=== PATIENT | male | born 1960 | race Caucasian/White ===

== ENCOUNTER → 2017-10-15 | Outpatient (CLI) | payer OTHER | LOC: COL.LAB 14:53 | DX: Z01.812 Encounter for preprocedural laboratory examination (principal) ==

== ENCOUNTER 2017-11-22 13:15 | Inpatient (IN) | payer OTHER ==
[~2017-11-22] VITALS: Ht 182.9 cm; Wt 146.7 kg
[2017-11-22] VITALS (10 sets, daily range): BP systolic 117–149; BP diastolic 49–74; PULSE 86–98; TEMP 99.9–101.7
[2017-11-22] MEDS ORDERED: ASPIRIN 32325 MG/TAB PO (13:51)
[2017-11-22] MEDS ORDERED: NAPROSYN500 MG PO (13:52)
[2017-11-22] MEDS ORDERED: ROXICODONE 55 MG/TAB PO (13:53)
[2017-11-22] MEDS ORDERED: ARTHROTEC 550 MG/TAB PO (13:54)
[2017-11-22] MEDS ORDERED: DURICEF 500MG500 MG PO (13:54)
[2017-11-23] VITALS (7 sets, daily range): BP systolic 115–134; BP diastolic 49–71; PULSE 80–106; TEMP 98.1–102.5
[2017-11-23 06:50] LABS: HEMATOCRIT 37.1 % (42.0-52.0); HEMOGLOBIN 12.3 g/dl (13.5-18.0); MEAN CELL VOLUME 93 fl (80.0-100.0); MEAN CORPUSCULAR HEMOGLOBIN 31 pg (27.0-31.0); MEAN CORPUSCULAR HGB CONC 33 g/dl (33.0-37.0); MEAN PLATELET VOLUME 10.6 fl (7.4-10.4); PLATELET COUNT 218 K/mm3 (130-400); REDCELL DISTRIBUTION WIDTH-CV 12.9 % (11.5-14.5)
[2017-11-23 07:00] LABS: CALCIUM 8.5 mg/dL (8.4-10.2); CREATININE, serum 0.92 mg/dL (0.66-1.25); POTASSIUM 3.2 mmol/L (3.4-5.0)
[2017-11-23 08:57] LABS: BAND 13 % (0-10); EOSINOPHIL 1 % (0-4); LYMPHOCYTE 8 % (20.0-51.0); METAMYELOCYTE 2 % (0-0); NEUTROPHILS 72 % (42.0-75.2); PLATELET ESTIMATE NORMAL (NORMAL)
[2017-11-24 04:55] VITALS: BP 128/78; PULSE 81; TEMP 98.9
[2017-11-24 08:21] VITALS: BP 142/75; PULSE 80; TEMP 99.3
[2017-11-24 09:09] LABS: BASO % 0.1 % (0.0-2.0); EOS # 0.3 (0.0-0.7); EOS % 3.3 % (0-4.0); GRAN # 7.1 (1.4-6.5); LYMPH # 0.9 (1.2-3.4); LYMPH % 9.7 % (20.0-51.0); MEAN CELL VOLUME 92 fl (80.0-100.0); MEAN CORPUSCULAR HEMOGLOBIN 31 pg (27.0-31.0); MEAN CORPUSCULAR HGB CONC 33 g/dl (33.0-37.0); MEAN PLATELET VOLUME 10.9 fl (7.4-10.4); MONO # 1.1 (0.1-0.6); MONO % 11.6 % (1.7-9.3); PLATELET COUNT 188 K/mm3 (130-400); RED BLOOD COUNT 3.59 M/mm3 (4.20-5.60); REDCELL DISTRIBUTION WIDTH-CV 12.7 % (11.5-14.5)
[2017-11-24 09:19] LABS: CREATININE, serum 0.88 mg/dL (0.66-1.25); POTASSIUM 3.5 mmol/L (3.4-5.0)
[2017-11-24 12:56] VITALS: BP 131/67; PULSE 77; TEMP 99
[2017-11-24 15:30] VITALS: BP 122/64; PULSE 87; TEMP 99.1
[2017-11-24 20:00] VITALS: BP 141/70; PULSE 96; TEMP 101.3
[2017-11-25] VITALS (7 sets, daily range): BP systolic 127–155; BP diastolic 61–79; PULSE 65–79; TEMP 98–99.8
[2017-11-25 07:42] LABS: BASO % 0.3 % (0.0-2.0); EOS # 0.3 (0.0-0.7); EOS % 4.4 % (0-4.0); GRAN # 4.8 (1.4-6.5); GRAN % 66.2 % (42.2-75.2); HEMOGLOBIN 10.6 g/dl (13.5-18.0); LYMPH # 1.1 (1.2-3.4); LYMPH % 15.6 % (20.0-51.0); MEAN CELL VOLUME 92 fl (80.0-100.0); MEAN CORPUSCULAR HEMOGLOBIN 31 pg (27.0-31.0); MEAN CORPUSCULAR HGB CONC 34 g/dl (33.0-37.0); MEAN PLATELET VOLUME 10.7 fl (7.4-10.4); MONO % 13.1 % (1.7-9.3); PLATELET COUNT 222 K/mm3 (130-400); RED BLOOD COUNT 3.43 M/mm3 (4.20-5.60); REDCELL DISTRIBUTION WIDTH-CV 12.9 % (11.5-14.5)
[2017-11-25 07:44] LABS: HEMATOCRIT 31.6 % (42.0-52.0)
[2017-11-25 07:57] LABS: CALCIUM 8.2 mg/dL (8.4-10.2); CREATININE, serum 0.94 mg/dL (0.66-1.25); POTASSIUM 3.4 mmol/L (3.4-5.0)
[2017-11-25 08:17] LABS: C-REACTIVE PROTEIN 16.6 mg/dL (0.0-0.9)
[2017-11-26] VITALS (12 sets, daily range): BP systolic 95–131; BP diastolic 41–93; PULSE 50–82; TEMP 98.2–98.8
[2017-11-26 07:03] LABS: BASO % 0.5 % (0.0-2.0); EOS # 0.4 (0.0-0.7); EOS % 4.7 % (0-4.0); GRAN # 5.3 (1.4-6.5); GRAN % 66.1 % (42.2-75.2); HEMOGLOBIN 10.2 g/dl (13.5-18.0); LYMPH # 1.4 (1.2-3.4); LYMPH % 17.2 % (20.0-51.0); MEAN CELL VOLUME 94 fl (80.0-100.0); MEAN CORPUSCULAR HEMOGLOBIN 31 pg (27.0-31.0); MEAN CORPUSCULAR HGB CONC 33 g/dl (33.0-37.0); MEAN PLATELET VOLUME 10.5 fl (7.4-10.4); MONO # 0.9 (0.1-0.6); MONO % 11.3 % (1.7-9.3); PLATELET COUNT 245 K/mm3 (130-400); RED BLOOD COUNT 3.28 M/mm3 (4.20-5.60)
[2017-11-26 07:06] LABS: CALCIUM 8.2 mg/dL (8.4-10.2); CREATININE, serum 0.87 mg/dL (0.66-1.25); HEMATOCRIT 30.7 % (42.0-52.0); POTASSIUM 3.4 mmol/L (3.4-5.0)
[2017-11-27 03:40] VITALS: BP 114/57; PULSE 61; TEMP 98.5
[2017-11-27 06:32] LABS: MEAN CELL VOLUME 94 fl (80.0-100.0); MEAN CORPUSCULAR HEMOGLOBIN 31 pg (27.0-31.0); MEAN CORPUSCULAR HGB CONC 33 g/dl (33.0-37.0); MEAN PLATELET VOLUME 10.3 fl (7.4-10.4); PLATELET COUNT 274 K/mm3 (130-400); RED BLOOD COUNT 3.26 M/mm3 (4.20-5.60); REDCELL DISTRIBUTION WIDTH-CV 12.7 % (11.5-14.5)
[2017-11-27 06:38] LABS: CALCIUM 8.4 mg/dL (8.4-10.2); CREATININE, serum 0.76 mg/dL (0.66-1.25); POTASSIUM 4.2 mmol/L (3.4-5.0)
[2017-11-27 06:43] LABS: HEMATOCRIT 30.7 % (42.0-52.0)
[2017-11-27 07:30] LABS: BAND 17 % (0-10); LYMPHOCYTE 1 % (20.0-51.0); NEUTROPHILS 77 % (42.0-75.2); PLATELET ESTIMATE NORMAL (NORMAL)
[2017-11-27 07:31] LABS: DOHLE BODIES PRESENT; TOXIC GRANULATION PRESENT
[2017-11-27 08:00] VITALS: BP 109/75; PULSE 62; TEMP 98.2
[2017-11-27] MEDS ORDERED: COLACE 100100 MG/CAP PO (09:33)
[2017-11-27] MEDS ORDERED: CUBICIN 500MG500 MG IV (09:43)
[2017-11-27 11:22] VITALS: BP 138/67; PULSE 79; TEMP 98
[2017-11-27 16:48] VITALS: BP 128/68; PULSE 71; TEMP 98.1
== END 2017-11-27 18:12 | disposition home or self-care (01) | DRG 466 ==
LOC: SURG 13:15
PROVIDERS: Family Medicine; Nurse Practitioner Family; Orthopaedic Surgery; Physician Assistant
PROC: 0MD Bursae and Ligaments, Extraction (ICD-10-PCS; 2017-11-22)
PROC: 0SPB0JZ Removal of Synthetic Substitute from Left Hip Joint, Open Approach (ICD-10-PCS; 2017-11-26)
PROC: 0SRB0JZ Replacement of Left Hip Joint with Synthetic Substitute, Open Approach (ICD-10-PCS; principal; 2017-11-26 12:30)
DX: T84.52XA Infection and inflammatory reaction due to internal left hip prosthesis, initial encounter (principal); A41.01 Sepsis due to Methicillin susceptible Staphylococcus aureus; Z68.41 Body mass index [BMI] 40.0-44.9, adult; I10 Essential (primary) hypertension; E87.6 Hypokalemia; D64.9 Anemia, unspecified; Z96.642 Presence of left artificial hip joint; E66.9 Obesity, unspecified
CPT/HCPCS: 99223-AI; 99231-AI; 99232-AI; A4216; A9284; C1713; C1751; C1776; J0690; J0878; J1100; J1885; J2250; J2274; J2370; J2543; J2704; J3010; J3370; J7040; J7120

== ENCOUNTER → 2017-11-22 | Outpatient (REF) ==
[~2017-11-22] MED LIST: ARTHROTEC 550 MG/TAB PO; ASPIRIN 32325 MG/TAB PO; DURICEF 500MG500 MG PO; NAPROSYN500 MG PO; ROXICODONE 55 MG/TAB PO
== END ==
LOC: ZLAB.WCH 15:04
DX: Z01.89 Encounter for other specified special examinations (principal)

== ENCOUNTER → 2017-12-13 | Outpatient (REF) ==
[~2017-12-13] MED LIST changes: +COLACE 100100 MG/CAP PO; +CUBICIN 500MG500 MG IV
== END ==
LOC: ZLAB.WCH 16:21
DX: Z01.89 Encounter for other specified special examinations (principal)

== ENCOUNTER → 2017-12-20 | Outpatient (REF) | LOC: ZLAB.WCH 15:51 | DX: Z12.31 Encounter for screening mammogram for malignant neoplasm of breast (principal) ==

== ENCOUNTER → 2018-01-02 | Outpatient (REF) | LOC: ZLAB.WCH 15:21 | DX: Z01.89 Encounter for other specified special examinations (principal) ==

== ENCOUNTER → 2018-01-08 | Outpatient (REF) | LOC: ZLAB.WCH 15:52 | DX: Z01.89 Encounter for other specified special examinations (principal) ==

== ENCOUNTER → 2018-01-15 | Outpatient (REF) | LOC: ZLAB.WCH 16:12 | DX: Z01.89 Encounter for other specified special examinations (principal) ==

== ENCOUNTER → 2018-03-12 | Outpatient (REF) | payer SELFPAY | LOC: ZLAB.WCH 15:57 | DX: Z01.89 Encounter for other specified special examinations (principal) ==

== ENCOUNTER → 2018-06-05 | Outpatient (REF) | LOC: ZLAB.WCH 17:45 | DX: Z01.89 Encounter for other specified special examinations (principal) ==